=== PATIENT | female | born 1970 | race Caucasian/White ===

== ENCOUNTER 2025-02-20 08:00 | Outpatient (CLI) | payer BC | END 2025-02-20 08:01 | disposition home or self-care (01) | LOC: SCSBT 08:00 | PROVIDERS: ATTEND Obstetrics & Gynecology | DX: Z78.0 Asymptomatic menopausal state (principal); M85.851 Other specified disorders of bone density and structure, right thigh; M85.852 Other specified disorders of bone density and structure, left thigh | CPT/HCPCS: 77080 ==